=== PATIENT | female | born 1970 | race Caucasian/White ===

== ENCOUNTER → 2020-01-22 | Outpatient (CLI) | payer MEDICARE, MEDICAID | LOC: M.MRI 13:06 | PROVIDERS: ATTEND Family Medicine | DX: M51.34 Other intervertebral disc degeneration, thoracic region (principal); G89.29 Other chronic pain; R93.7 Abnormal findings on diagnostic imaging of other parts of musculoskeletal system; M47.814 Spondylosis without myelopathy or radiculopathy, thoracic region ==

== ENCOUNTER → 2020-02-10 | Outpatient (CLI) | payer MEDICARE, MEDICAID ==
[~2020-02-10] MED LIST: CHILDREN'S ZYRT10 M1 PO; HYDROCHLOROTHIA25 M2 PO; LISINOPRIL20 MG PO; METFORMIN HCL500 M3 PO; NEURONTIN 300M300 M2 PO; PROTONIX 20 MG20 M1 PO; ROSUVASTATIN CA20 MG PO; STOOL SOFTENER100 MG PO; VITAMIN D3250 MC1 PO
== END ==
LOC: M.PC 12:38
PROVIDERS: ATTEND Anesthesiology Pain Medicine
DX: M54.9 Dorsalgia, unspecified (principal); E11.9 Type 2 diabetes mellitus without complications; E78.00 Pure hypercholesterolemia, unspecified; N20.0 Calculus of kidney; K21.9 Gastro-esophageal reflux disease without esophagitis; J44.9 Chronic obstructive pulmonary disease, unspecified; F41.8 Other specified anxiety disorders; L71.9 Rosacea, unspecified; F32.9 Major depressive disorder, single episode, unspecified